=== PATIENT | male | born 1940 | race Caucasian/White ===

== ENCOUNTER 2016-12-08 08:49 | Inpatient (IN) | payer OTHER ==
--- NOTE | 2016-12-08 09:37 | EDPHY ---
H & P Time Seen by Provider: 12/08/16 09:15 HPI/ROS: Chief complaint. Fever HPI. 76-year-old male with history of myeloma currently having chemotherapy. He has had upper respiratory symptoms for about 1 week. In the last 1-2 days he has developed shortness of breath muscle aches and fever to 101.5. He had cough and runny nose. No abdominal pain, vomiting or diarrhea. ROS Constitutional. Fever and weakness Eyes. no problems with vision ENT. Runny nose and sore throat Cardiovascular. no chest pain Respiratory. Cough and shortness of breath Abdominal. no abdominal pain, no nausea/vomiting, no diarrhea . no problems urinating MS. no calf pain/swelling, no neck/back pain, no joint pain Skin. no rash Lymph. no swollen glands Neuro. no headache, no dizziness, no difficulty walking or with speech Past Medical/Surgical History: Multiple myeloma Social History: Single, nonsmoker, no alcohol Smoking Status: Former smoker Physical Exam: General Appearance: Alert well-developed male moderate distress vital signs show temp 38.3degrees, heart rate 107, O2 saturation 88% on room air Eyes: Pupils equal and round no pallor or injection. ENT, pharynx slightly injected without exudate Respiratory: No retractions but inspiratory expiratory rhonchi Cardiovascular: Tachycardia but regular rate and rhythm Gastrointestinal: Abdomen is soft and nontender, no masses, bowel sounds normal. Neurological: Awake and alert, sensory and motor exams grossly normal. Skin: Warm and dry, no rashes. Musculoskeletal: Neck is supple nontender. Extremities symmetrical, full range of motion. Psychiatric: Patient is oriented X 3, there is no agitation. Constitutional: Initial Vital Signs Temperature (C) 38.3 C H 12/08/16 09:04 Heart Rate 107 H 12/08/16 09:04 Respiratory Rate 17 12/08/16 09:04 Blood Pressure 149/75 H 12/08/16 09:04 O2 Sat (%) 88 L 12/08/16 09:04 O2 Delivery Mode Room Air Allergies/Adverse Reactions: No Known Allergies Allergy (Unverified 01/13/15 16:53) Home Medications: Medication Instructions Recorded Acyclovir [Zovirax 400 mg (*)] 800 mg PO BID 12/08/16 Aspirin [Aspirin 81mg (*)] 81 mg PO DAILY@1430 12/08/16 Azithromycin [Zithromax] 250 mg PO DAILY 12/08/16 Dexamethasone [Decadron 4 MG (*)] 10 mg PO FR 12/08/16 Herbals/Supplements -Info Only 1 ea PO DAILY 12/08/16 Pomalidomide [Pomalyst] 2 mg PO DAILY 12/08/16 Sulfamethox/Tmp 800/160 mg 1 tab PO MWF 12/08/16 [Bactrim Ds] morphINE SR [Ms Contin/Oramorph 15 15 mg PO Q12H 12/08/16 mg (*)] Medical Decision Making - Diagnostics Imaging: Chest x-ray interpreted by me shows no evidence of pneumonia Procedures: IV normal saline. Septic workup Flu swab negative Blood cultures pending Lactate normal ED Course/Re-evaluation: Re-evaluation at 10:40 a.m.. Patient is stable. He and I discussed imaging and lab results. We discussed treatment plan including need for admission further evaluation. He expresses understanding and agreement I consulted and discussed the case with Dr. Prescott, hospitalist, who agrees to the admission Lactate is normal. I discussed findings of laboratory and imaging studies with the patient. We discussed treatment plan including need for admission. He expresses understanding and agreement Patient is given IV Levaquin in the department after cultures Differential Diagnosis: I considered influenza, pneumonia, bacterial illness, sepsis. The patient clearly has was probably a viral syndrome not influenza. He is hypoxic. He certainly bone herbal to serious bacterial illness because of his myeloma and current chemotherapy - Data Points Laboratory Results: 12/08/16 12/08/16 12/08/16 10:12 10:12 10:12 PT 14.2 SEC SEC (12.0-15.0) INR 1.11 (0.83-1.16) APTT 44.2 SEC H SEC (23.0-38.0) VBG Lactic Acid 0.8 mmol/L mmol/L (0.7-2.1) Total Bilirubin 1.0 mg/dL mg/dL (0.1-1.4) Medications Given: Discontinued Medications Levofloxacin/Dextrose (Levaquin 750 Mg (Premix)) 150 mls @ 100 mls/hr IV EDNOW ONE PRN Reason: Protocol Stop: 12/08/16 12:22 Last Admin: 12/08/16 11:11 Dose: 150 mls Departure - Departure Disposition: [facility] Acute Clinical Impression: Viral syndrome, Hypoxia Multiple myeloma Qualifiers: Multiple myeloma remission status: not in remission Qualified Code(s): C90.00 - Multiple myeloma not having achieved remission Condition: Fair
[2016-12-08 10:37] LABS: INR 1.11 (0.83-1.16); PROTIME(PATIENT) 14.2 SEC (12.0-15.0)
[2016-12-08 10:57] LABS: APTT 44.2 SEC (23.0-38.0)
[2016-12-08 11:24] LABS: COLOR YELLOW; LEUKOCYTE ESTERASE,URINE NEGATIVE (NEGATIVE); NITRITE,URINE NEGATIVE (NEGATIVE)
[2016-12-08 11:27] LABS: MUCUS TRACE /lpf (NONE-1+)
--- NOTE | 2016-12-08 14:10 | PDGENHP ---
History and Physical History and Physical: HISTORY AND PHYSICAL ADMISSION NOTE CC: Cough and fever HISTORY: This patient who is receiving ongoing treatment for myeloma has developed fevers and cough. He is referred here to the hospital for further evaluation and care from the Oncology Clinic. he started with cough and fatigue a week ago in the last 36 hours has developed worsening and more productive cough along with chills and fevers. He has no chest pain no nausea vomiting no headache no upper respiratory infection symptoms though he did have some sinus congestion at the onset of his illness a week ago. ROS: Some fatigue and has been eating less thinks he has lost about 4 lb. 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 CLL Chronic pain from myeloma with daily use of prescribed narcotic Hypogammaglobulinemia FAMILY MEDICAL HISTORY: no relevant medical history in the family, no ill contacts SOCIAL HISTORY: Quit smoking in 1984 MEDICATIONS: These are reviewed in the electronic record and reconciled by pharmacy and I have reviewed them in ordered appropriate medicines PHYSICAL EXAMINATION: Vital Signs: Temperature 38.3 and some hypoxemia, otherwise normal Examination: General: alert, oriented, good mentation, relaxed Skin: warm, dry, good color, no rash HEENT: normal Neck: no mass or jvd Resps: relaxed Lungs: some slight wheeze and rhonchi at both lung bases Heart: regular, no murmur Abdomen: soft, nondistended, nontender, +BS, no mass Upper Extremities: normal Lower Extremities: no edema, warm No Bleeding or bruising Neurologic: normal speech/language, normal auto servicer, no focal weakness IV site: looks normal LABORATORY DATA: CBC with stable anemia platelets but white count is normal Influenza serology negative Blood cultures pending RADIOLOGY STUDIES: Chest x-ray done in the ER, my personal interpretation images: Stable chest x- ray with no infiltrates effusions or masses chest CT scan was also done and I have reviewed these images as well: This is a non contrasted CT chest which shows some mild atelectasis and/or infiltrate at the lung bases ASSESSMENT: # acute febrile respiratory infection suspect early community-acquired pneumonia complicating an upper respiratory infection ; influenza negative # Immune compromise based on myeloma and chemotherapy, but not currently neutropenic PLANS: - will begin antibiotics with Levaquin -Follow with blood cell count did not expect him developed neutropenia at this point -after review with Dr Rodgers all the patient is placed in inpatient due to concern about his immune compromise I have reviewed the patient's case in detail with Dr. Higinio Barajas and Selwyn Rodgers I have reviewed the patient's past medical records as part of this assessment, including oncology clinic records and laboratory data
--- NOTE | 2016-12-08 14:21 | GHP ---
[f rep st] HISTORY AND PHYSICAL DATE OF ADMISSION: 12/08/2016 The patient is a very pleasant 76-year-old male who has a history of multiple myeloma. This was eliza mantilla diagnosed in December of 2014. 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 He was induce d with CyBorD and underwent an autologous stem cell transplant on 06/07/2015. He relapsed and has b een on daratumumab and pomalidomide since April of 2016, and he was felt to have a partial response. He has had a number of respiratory infections and over the last week has had an increasing cough. He was started on a Z-Gabino a few days ago. He has had some low-grade chills and presented to the off ice today and was noted to have a fever to 101.5 and to be a bit hypoxemic with a room air sat of 90 % and he was therefore admitted for further evaluation. In the ER, a chest x-ray was unremarkable. CBC really looked pretty good. He was given a dose of IV levofloxacin in the emergency room and tr ansferred to the floor. PAST MEDICAL HISTORY: Significant for rotator cuff repair, arthroscopic knee surgeries and appendec silvia. SOCIAL HISTORY: He is a former smoker, stopped in 1984. He is a jazz pianist and nutrition aides teacher. Sri huang has a 40-year-old daughter who lives in [place]. Appetite is down a bit over the last couple of days. PHYSICAL EXAMINATION: VITAL SIGNS: Today, blood pressure 144/82, room air sat 90%. Temp currently is 98.1, but it was 101 at 9 o'clock. HEENT: He is not icteric. I detect no cervical, supraclavi cular adenopathy. Pharynx is unremarkable. LUNGS: Show some rhonchi, rales and perhaps even a sli ght rub at the left base. CARDIAC: Unremarkable. ABDOMEN: Benign without organomegaly. EXTREMIT IES: Show no obvious edema. There may be trace edema in the right leg. LABORATORY DATA: White count is 4000 with 87% neutrophils, hemoglobin 12, hematocrit 36, platelets 156,000. Chemistry panel shows a creatinine of 1.2. IMPRESSION: Patient with myeloma, I should note predominantly light chain disease with a number of adverse factors on pomalidomide and daratumumab presenting with upper respiratory symptoms over the last few days and a fever. Lung exam is a bit abnormal and he has some hypoxemia, I am most suspici ous of pneumonia. He has received Levaquin. I think he could continue on the Zithromax. I think a CT scan of the chest would be reasonable. I think doing this noncontrast may make some sense as hi s creatinine is kind of upper end of normal and he does have significant light chain disease which m ight make him more prone to contrast-induced nephropathy. I think we will hold his pomalidomide for the next few days, although his counts really looked pretty good. Case was discussed with Dr. Beata muniz of the hospitalist service. /[id number]/MODL
[2016-12-08] MEDS ORDERED: ACETAMINOPHEN 325 MG TAB PO PRN (16:01)
[2016-12-08] MEDS ORDERED: ZOLPIDEM TARTRATE 5 MG TAB PO PRN (16:01)
[2016-12-08] MEDS ORDERED: ONDANSETRON DISINTEGRATING 4 MG TAB PO PRN (16:01)
[2016-12-08] MEDS ORDERED: ONDANSETRON 4 MG/2 ML VIAL IVP PRN (16:01)
[2016-12-08] MEDS ORDERED: DEXAMETHASONE 4 MG TAB PO SCH (19:00)
[2016-12-08] MEDS: morphINE SR 15 MG TAB PO SCH (19:55)
[2016-12-08] MEDS ORDERED: ACYCLOVIR 400 MG TAB PO SCH (21:00)
[2016-12-08] MEDS ORDERED: POLYETHYLENE GLYCOL 3350 17 GM PKT PO SCH (21:00)
[2016-12-09 06:08] LABS: % IMMATURE GRANULYOCYTES 0.8 % (0.0-1.1); ABSOLUTE IMMATURE GRANULOCYTES 0.03 10^3/uL (0.00-0.10); ADD DIFF? NO; ADD MORPH? NO; ADD SCAN? NO; ATYPICAL LYMPHOCYTE FLAG 0 (0-99); FRAGMENT RBC FLAG 0 (0-99); HEMATOCRIT 32.5 % (40.0-51.0); HEMOGLOBIN 10.8 g/dL (13.7-17.5); LEFT SHIFT FLG 50 (0-99); LIPEMIA HEMOLYSIS FLAG 80 (0-99); MEAN CELL HEMOGLOBIN 33.1 pg (27.9-34.1); MEAN CELL HEMOGLOBIN CONCENTR. 33.2 g/dL (32.4-36.7); MEAN CELL VOLUME 99.7 fL (81.5-99.8); PLATELET CLUMPS FLAG 0 (0-99); PLATELET COUNT 146 10^3/uL (150-400); RED BLOOD CELL COUNT 3.26 10^6/uL (4.40-6.38); RED CELL DISTRIBUTION WIDTH 14.2 % (11.5-15.2)
[2016-12-09 06:16] LABS: ANION GAP 7 mEq/L (8-16); CALCIUM 8.1 mg/dL (8.5-10.4); CARBON DIOXIDE 22 mEq/l (22-31); CHLORIDE 105 mEq/L (97-110); CREATININE 0.8 mg/dL (0.7-1.3); GLOMERULAR FILTRATION RATE > 60; GLUCOSE 138 mg/dL (70-100); POTASSIUM 4.4 mEq/L (3.5-5.2); SODIUM 134 mEq/L (134-144)
[2016-12-09 08:24] VITALS: BP 114/89; PULSE 82; RESP 21; TEMP 98.2; O2SAT 97
--- NOTE | 2016-12-09 08:29 | HOSPPROG ---
Hospitalist Progress Note Assessment/Plan: #Acute hypoxic resp failure -due to PNA #CAP: cont LQ for 5 days #Multiple myeloma: followed by CC Disp: DC today, see DC summary for full plan Subjective: wants to go home Objective: Vital Signs Temp Pulse Resp BP Pulse Ox 36.8 C 82 21 H 114/89 H 97 12/09/16 08:21 12/09/16 08:21 12/09/16 08:21 12/09/16 08:21 12/09/16 08:21 Laboratory Results 12/09/16 04:00 12/09/16 04:00 12/08/16 12/09/16 12/10/16 05:59 05:59 05:59 Intake Total 1500 Balance 1500 PT 14.2 SEC (12.0-15.0) 12/08/16 10:12 INR 1.11 (0.83-1.16) 12/08/16 10:12 - Physical Exam Constitutional: no apparent distress Eyes: PERRL Ears, Nose, Mouth, Throat: moist mucous membranes Cardiovascular: regular rate and rhythym Respiratory: no respiratory distress, other (crackles, left lung base) Gastrointestinal: normoactive bowel sounds Genitourinary: no bladder fullness Skin: warm Musculoskeletal: full muscle strength Neurologic: AAOx3 Psychiatric: interacting appropriately ICD10 Worksheet Patient Problems: Problems Problem Status Onset Multiple myeloma Acute Viral syndrome Acute
[2016-12-09] MEDS: morphINE SR 15 MG TAB PO SCH (08:30)
[2016-12-09] MEDS ORDERED: ACYCLOVIR 400 MG TAB PO SCH (09:00)
[2016-12-09] MEDS ORDERED: ENOXAPARIN 40 MG/0.4 ML SYR SC SCH (09:00)
[2016-12-09] MEDS ORDERED: Pomalidomide [Pomalyst] 2 MG PO SCH (09:00)
--- NOTE | 2016-12-09 12:11 | SOAPPROG ---
SOAP Progress Note Assessment/Plan: Assessment:1.) LLL pneumonia, 2.) Multiple Myeloma, on Daratumumab regimen 3.) Tx related myelosuppression 4.) Hypoxemia secondary to pneumonia Plan: !.) I think that Newton could go home today with Levaquin, po, albuterol inhaler, and resumption of home regimen. He will likely need home oxygen temporarily. D/W and with the patient. He is to continue [facility] office follow up as scheduled. 12/09/16 12:11 Subjective: Feeing better, stronger, less dyspneic No new sx. Has ambulated in the halls this AM. Objective: afebrile, VSS HEENT- anicteric, no oral lesions, Neck- supple Chest- mild rhonchi in R base CVS- RSR, no extra HS ABD- soft, NT, BS+, nondistended EXT- no edema, skin intact Labs and CT chest as noted in the chart seen and reviewed. Vital Signs Temp Pulse Resp BP Pulse Ox 36.8 C 82 21 H 114/89 H 97 12/09/16 08:21 12/09/16 08:21 12/09/16 08:21 12/09/16 08:21 12/09/16 08:21 Laboratory Results 12/09/16 04:00 12/09/16 04:00 12/08/16 12/09/16 12/10/16 05:59 05:59 05:59 Intake Total 1500 Balance 1500 PT 14.2 SEC (12.0-15.0) 12/08/16 10:12 INR 1.11 (0.83-1.16) 12/08/16 10:12 ICD10 Worksheet Patient Problems: Problems Problem Status Onset Multiple myeloma Acute Viral syndrome Acute
[2016-12-09] MEDS ORDERED: ASPIRIN 81 MG CHEWABLE TAB PO SCH (14:30)
--- NOTE | 2016-12-09 20:00 | GDS ---
[f rep st] DISCHARGE SUMMARY DISCHARGE DIAGNOSES: 1. Multiple myeloma, status post bone marrow transplant in 2015. 2. CLL. 3. Chronic pain from myeloma. 4. Hypogammaglobulinemia. 5. Acute hypoxic respiratory failure. 6. Community-acquired pneumonia. HISTORY OF PRESENT ILLNESS: Patient is a very pleasant 76-year-old male with history of multiple myeloma, CLL, who presented to [facility] yesterday complaining of some chills and was noted to have a fever of 101.5. He was mildly hypoxemic at 90%. In the emergency room, chest x-ray was unremarkable; however, CT scan demonstrated a left lower lung pneumonia with tree-in-bud findings. He has had a productive cough. Denies chest pain, nausea , vomiting, or diarrhea. HOSPITAL COURSE BY PROBLEM: 1. Acute hypoxemic respiratory failure: due to community-acquired pneumonia as demonstrated on CT. Patient was started on Levaquin. I will continue this for a total of 5 days. Influenza negative. 2. Community-acquired pneumonia. feeling well and wanted to go home today, so will complete a total of 5 days of therapy, as well as albuterol inhaler for inflammation. 3. Multiple myeloma. Currently on chemotherapy. His most recent infusion was supposed to be on 12/08. He will follow up with [facility] for next treatment plan. DISPOSITION: Patient is stable for discharge. MEDICATIONS: New medications: Levaquin for 4 more days. Oxygen. FOLLOWUP: [facility] for cancer treatment. PCP to reevaluate room air sat and need for oxygen. /[id number]/MODL MTDD
[2016-12-11] MEDS ORDERED: SULFAMETHOX/TMP 800/160 MG 1 TAB PO SCH (08:00)
== END 2016-12-09 17:12 | disposition home or self-care (01) | DRG 193 ==
LOC: F1N 11:17
PROVIDERS: ADMIT Internal Medicine; ATTEND Internal Medicine
DX: J18.9 Pneumonia, unspecified organism (principal); J96.01 Acute respiratory failure with hypoxia; C90.00 Multiple myeloma not having achieved remission; Z87.891 Personal history of nicotine dependence; Z94.81 Bone marrow transplant status
CPT/HCPCS: 96365; 96366; J1650; J1956